=== PATIENT | male | born 1960 | race Caucasian/White ===

== ENCOUNTER 2023-06-11 07:37 | Day surgery (SDC) | payer MEDICARE, BC ==
[~2023-06-11] VITALS: Ht 190.5 cm; Wt 91.9 kg
[~2023-06-11 07:37] MED LIST: ATOR20 PO; CARDURA2 M1; CLOP75 PO; GABA300 PO; HUMULIN N100 UNIT/3; Lactated Ringer's 1,000 ML IV ONE; METF500C PO; VERA240ER PO
[2023-06-11] MEDS ORDERED: PANT40 (08:04)
[2023-06-11] MEDS ORDERED: Lactated Ringer's 1,000 ML IV ONE (09:06)
[2023-06-11] MEDS ORDERED: propofoL 50 ML IV ONE (09:42)
[2023-06-11 10:29] VITALS: BP 132/72
== END 2023-06-11 10:20 | disposition home or self-care (01) ==
LOC: ORSCSDS 07:37
PROVIDERS: Internal Medicine Gastroenterology
PROC: 0DJ08ZZ Inspection of Upper Intestinal Tract, Via Natural or Artificial Opening Endoscopic (ICD-10-PCS; principal; 2023-06-11 09:45)
DX: R11.2 Nausea with vomiting, unspecified (principal); I12.9 Hypertensive chronic kidney disease with stage 1 through stage 4 chronic kidney disease, or unspecified chronic kidney disease; E11.22 Type 2 diabetes mellitus with diabetic chronic kidney disease; E11.40 Type 2 diabetes mellitus with diabetic neuropathy, unspecified; Z86.73 Personal history of transient ischemic attack (TIA), and cerebral infarction without residual deficits; N18.30 Chronic kidney disease, stage 3 unspecified; F41.9 Anxiety disorder, unspecified; E78.5 Hyperlipidemia, unspecified; F32.A Depression, unspecified; Z87.891 Personal history of nicotine dependence; Z79.02 Long term (current) use of antithrombotics/antiplatelets; Z79.4 Long term (current) use of insulin; Z79.84 Long term (current) use of oral hypoglycemic drugs; Z79.899 Other long term (current) drug therapy
CPT/HCPCS: 82947; J2704; J7120